=== PATIENT | male | born 1965 | race African-American/Black ===

== ENCOUNTER → 2019-05-04 | Outpatient (CLI) | payer OTHER ==
[~2019-05-04] MED LIST: ALBUTEROL SULFATE 2.5 MG/3 ML NEBU. NEB ONE
--- NOTE | 2019-05-04 10:46 | RAD ---
EXAM: AP and lateral views of the right knee DATE: 05/04/2019 12:00 AM INDICATION: Right knee pain for many years COMPARISON: No Prior FINDINGS: No evidence of acute fracture or dislocation. Although joint spaces are preserved, small osteophytes are seen at the medial compartment. No right joint effusion. Decreased bone mineral density. IMPRESSION: 1. Degenerative changes right knee with proliferative changes medial compartment. 2. No evidence of acute fracture or dislocation. Electronically signed by: Kev Majro MD (05/04/2019 10:43 AM) [id number]
== END | disposition home or self-care (01) ==
LOC: PF 08:09
PROVIDERS: ATTEND Surgery
DX: M17.11 Unilateral primary osteoarthritis, right knee (principal); M25.761 Osteophyte, right knee; R06.02 Shortness of breath; F17.210 Nicotine dependence, cigarettes, uncomplicated
CPT/HCPCS: 73560; 94060; 94640; 94729; J7613